=== PATIENT | male | born 1960 | race Asian ===

== ENCOUNTER 2021-11-26 12:06 | Emergency (ER) | payer MEDICARE, MEDICAID ==
[~2021-11-26] VITALS: Ht 182.9 cm; Wt 63.5 kg
[~2021-11-26 12:06] MED LIST: ACYC-163 PO; AMLO-496 PO; ATOR20TA PO; CLON0.2T PO; METO25TA93 PO; MYCO180T PO; NYSTPOW PO; OMEG100062 PO; PRED5PAK8 PO; TACR1CAP4 PO; TACR5CAP3 PO
[2021-11-26] MEDS ORDERED: SODIUM CHLORIDE 0.9% 1,000 ML IV ONE (12:30)
[2021-11-26 13:07] VITALS: BP 105/69
[2021-11-26 13:26] LABS: Basophils # (auto) 0 10 ^3/uL (0-0.2); Basophils % (auto) 0.4 % (0.0-2.0); Eosinophils # (auto) 0.1 10 ^3/uL (0-0.8); Eosinophils % (auto) 1.9 % (0.0-7.0); Hematocrit 35.2 % (41.0-53.0); Hemoglobin 11.9 g/dL (13.5-17.5); Lymphocytes # (auto) 0.9 10 ^3/uL (0.4-5.4); Lymphocytes % (auto) 18.4 % (10.0-50.0); Mean Corpuscular Hemoglobin 33.2 pg (28.0-32.0); Mean Corpuscular Hgb Conc. 33.8 g/dL (32.0-36.0); Mean Corpuscular Volume 98.5 fL (80.0-100.0); Monocytes # (auto) 0.4 10 ^3/uL (0-1.3); Monocytes % (auto) 7.7 % (0.0-12.0); Neutrophils # (auto) 3.3 10 ^3/uL (1.6-8.6); Neutrophils % (auto) 71.6 % (37.0-80.0); Nucleated Red Blood Cells % 0.1 %; Red Blood Cells 3.58 10^6/uL (4.5-5.90); Red Cell Distribution Width 13.8 % (11.8-14.3); White Blood Cell 4.6 10^3/uL (4.4-10.8)
[2021-11-26 13:43] LABS: INR 1.09 (0.9-1.15); Partial Thromboplastin Time 25.2 sec (23.6-33.0)
[2021-11-26 13:50] LABS: Albumin 3.4 g/dL (3.4-5.0); Calcium 8.3 mg/dL (8.5-10.1); Potassium 3.7 mmol/L (3.5-5.1)
[2021-11-26 13:52] LABS: BUN/Creatinine Ratio 22.8; Bilirubin, Total 0.4 mg/dL (0.2-1.0); Total Protein 6.7 g/dL (6.4-8.2)
== END 2021-11-26 14:52 | disposition left against medical advice (07) ==
LOC: EDBD 12:06 → ER 12:06
DX: R10.84 Generalized abdominal pain (principal); R53.1 Weakness; I12.9 Hypertensive chronic kidney disease with stage 1 through stage 4 chronic kidney disease, or unspecified chronic kidney disease; N18.9 Chronic kidney disease, unspecified; E78.5 Hyperlipidemia, unspecified; Z86.2 Personal history of diseases of the blood and blood-forming organs and certain disorders involving the immune mechanism; Z79.899 Other long term (current) drug therapy
CPT/HCPCS: 36415; 74176; 80053; 83605; 83690; 84484; 85025; 85610; 85730; 87040

== ENCOUNTER 2022-05-26 06:08 | Day surgery (SDC) | payer MEDICARE, MEDICAID ==
[2022-05-24 14:59] LABS: Urine Bacteria NONE SEEN /hpf (None Seen); Urine Blood Negative /uL (Negative); Urine Specific Gravity 1.024 (1.001-1.035); Urine WBC 10 /hpf (0 - 3)
[2022-05-24 15:00] LABS: Basophils # (auto) 0 10 ^3/uL (0-0.2); Basophils % (auto) 0.9 % (0.0-2.0); Eosinophils # (auto) 0.4 10 ^3/uL (0-0.8); Eosinophils % (auto) 6.7 % (0.0-7.0); Hematocrit 32.8 % (41.0-53.0); Hemoglobin 10.8 g/dL (13.5-17.5); Lymphocytes # (auto) 1.1 10 ^3/uL (0.4-5.4); Lymphocytes % (auto) 20.5 % (10.0-50.0); Mean Corpuscular Hemoglobin 32.1 pg (28.0-32.0); Mean Corpuscular Hgb Conc. 33.1 g/dL (32.0-36.0); Mean Corpuscular Volume 97.2 fL (80.0-100.0); Monocytes # (auto) 0.5 10 ^3/uL (0-1.3); Monocytes % (auto) 9.2 % (0.0-12.0); Neutrophils # (auto) 3.3 10 ^3/uL (1.6-8.6); Neutrophils % (auto) 62.7 % (37.0-80.0); Nucleated Red Blood Cells % 0.1 %; Red Blood Cells 3.37 10^6/uL (4.5-5.90); White Blood Cell 5.3 10^3/uL (4.4-10.8)
[2022-05-24 15:14] LABS: Calcium 8.6 mg/dL (8.5-10.1); Potassium 4.8 mmol/L (3.5-5.1)
[2022-05-24 15:19] LABS: BUN/Creatinine Ratio 17.4; Bilirubin, Total 0.7 mg/dL (0.2-1.0); Total Protein 7.6 g/dL (6.4-8.2)
[2022-05-24 15:56] LABS: INR 1.13 (0.9-1.15); Partial Thromboplastin Time 27.1 sec (24.6-33.4)
[~2022-05-26] VITALS: Ht 170.2 cm; Wt 63.5 kg
[~2022-05-26 06:08] MED LIST changes: -ACYC-163 PO; +AMLO-489 PO; -AMLO-496 PO; +ASPI81CH59 PO; -ATOR20TA PO; +CARV25TA55 PO; +CHOL500021 PO; -CLON0.2T PO; +FAMO20TA10 PO; +FER325T PO; +MAGN400T40 PO; +MEGE40TA4 PO; -METO25TA93 PO; -MYCO180T PO; +MYCO360T PO; -NYSTPOW PO; -OMEG100062 PO; +OMEP20TA PO; -PRED5PAK8 PO; +PYRI1TAB10 PO; +ROSU20TA14 PO; +SODI650T PO; -TACR5CAP3 PO
[2022-05-26] MEDS ORDERED: ceFAZolin 1GM/50ML 0 ML IV ONE (06:39)
[2022-05-26] MEDS ORDERED: LIDOCAINE W/ EPINEPHRINE 2% INJ 20ML VIAL ONE (06:54)
[2022-05-26] MEDS ORDERED: ceFAZolin 1GM VL ONE (06:58)
[2022-05-26] MEDS ORDERED: CIPROFLOXACIN 400MG/200ML 200 ML IV ONE (07:19)
[2022-05-26] MEDS ORDERED: MIDAZOLAM HCL 2MG/2ML 2ml VIAL (1mg/ml) ONE (07:29)
[2022-05-26] MEDS ORDERED: fentaNYL CITRATE 100 MCG/2 ML VL ONE ×2 (07:29→07:56)
[2022-05-26] MEDS ORDERED: ROCURONIUM 10MG/ML 10ML VIAL IV ONE (07:29)
[2022-05-26] MEDS ORDERED: LIDOCAINE 2% (LOCAL ANESTH.) PF 5ml SDV ONE (07:30)
[2022-05-26] MEDS ORDERED: ONDANSETRON HCL 4 MG/2 ML VIAL ONE (07:30)
[2022-05-26] MEDS ORDERED: PROPOFOL 10 MG/ML 20 ML IV ONE (07:30)
[2022-05-26] MEDS ORDERED: ONDANSETRON HCL 4 MG/2 ML VIAL IV PRN (08:45)
[2022-05-26] MEDS: HYDROmorphone HCL 2 MG/ML VL/or syr IV PRN ×4 (09:19→10:00)
[2022-05-26] MEDS: hydrALAZINE HCL 20 MG/ML VL ONE ×3 (09:50→10:30)
[2022-05-26 10:50] VITALS: BP 163/88
== END 2022-05-26 11:18 | disposition home or self-care (01) ==
LOC: SUR 06:08
PROVIDERS: ATTEND Urology
DX: N52.9 Male erectile dysfunction, unspecified (principal); N52.01 Erectile dysfunction due to arterial insufficiency; N18.6 End stage renal disease; I12.0 Hypertensive chronic kidney disease with stage 5 chronic kidney disease or end stage renal disease; E78.5 Hyperlipidemia, unspecified; Z79.899 Other long term (current) drug therapy; Z98.890 Other specified postprocedural states
CPT/HCPCS: 36415; 54401; 80053; 81001; 85025; 85610; 85730; 87086; C1813; J0360; J0690; J0744; J1170; J2001; J2250; J2405; J2704; J3010; U0003

== ENCOUNTER → 2022-09-08 | Day surgery (SDC) | payer MEDICARE, MEDICAID ==
[2022-09-06 09:20] LABS: Basophils # (auto) 0 10 ^3/uL (0-0.2); Eosinophils # (auto) 0.1 10 ^3/uL (0-0.8); Eosinophils % (auto) 2.4 % (0.0-7.0); Hematocrit 31.1 % (41.0-53.0); Hemoglobin 10.4 g/dL (13.5-17.5); Lymphocytes # (auto) 0.7 10 ^3/uL (0.4-5.4); Lymphocytes % (auto) 18.7 % (10.0-50.0); Mean Corpuscular Hgb Conc. 33.5 g/dL (32.0-36.0); Mean Corpuscular Volume 95.4 fL (80.0-100.0); Monocytes # (auto) 0.4 10 ^3/uL (0-1.3); Monocytes % (auto) 10.5 % (0.0-12.0); Neutrophils # (auto) 2.4 10 ^3/uL (1.6-8.6); Neutrophils % (auto) 67.4 % (37.0-80.0); Nucleated Red Blood Cells % 0.1 %; Red Blood Cells 3.26 10^6/uL (4.5-5.90); Red Cell Distribution Width 13.2 % (11.8-14.3); White Blood Cell 3.6 10^3/uL (4.4-10.8)
[2022-09-06 09:23] LABS: Urine Bacteria NONE SEEN /hpf (None Seen); Urine Blood Negative /uL (Negative); Urine WBC 2 /hpf (0 - 3)
[2022-09-06 09:57] LABS: INR 1.12 (0.9-1.15); Partial Thromboplastin Time 27.9 sec (24.6-33.4)
[2022-09-06 09:59] LABS: Potassium 4.1 mmol/L (3.5-5.1)
[2022-09-06 10:18] LABS: BUN/Creatinine Ratio 17.1; Bilirubin, Total 0.8 mg/dL (0.2-1.0); Calcium 7.9 mg/dL (8.5-10.1); Total Protein 7.2 g/dL (6.4-8.2)
[~2022-09-08] VITALS: Ht 170.2 cm; Wt 68.0 kg
[~2022-09-08] MED LIST changes: +BACITRACIN TOP OINT 1 UD PKG TOP ONE; +DexAMETHasone SOD PHOS 10MG/1ML VIAL INJ ONE; +FLUMAZENIL 0.1 MG/ML INJ 10ML MDV IV PRN; +GLYCOPYRROLATE 0.2 MG/ML 1ML VIAL ONE; +HYDROmorphone HCL 2 MG/ML VL/or syr ONE; +KETOROLAC TROMETH 30 MG/ML 1ML VIAL ONE; +LABETALOL HCL 5 MG/ML 4ML SYRINGE IV PRN; +LIDOCAINE 1%HCL (LOCAL ANESTH) 10 ML MDV ONE; +LIDOCAINE 2% (LOCAL ANESTH.) PF 5ml SDV ONE; +NALOXONE HCL 0.4 MG/ML VIAL IV PRN; +ONDANSETRON HCL 4 MG/2 ML VIAL IV PRN; +ONDANSETRON HCL 4 MG/2 ML VIAL ONE; +PROPOFOL 10 MG/ML 20 ML IV ONE; +SODIUM CHLORIDE LOCK 10 ML ONE; +ceFAZolin 1GM VL ONE; +ceFAZolin 1GM/50ML 100 ML IV ONE; +ePHEDrine SULFATE 50 MG/ML AMP IV PRN; +ePHEDrine SULFATE 50 MG/ML AMP ONE; +fentaNYL CITRATE 100 MCG/2 ML VL IV PRN; +fentaNYL CITRATE 100 MCG/2 ML VL ONE
[2022-09-08] MEDS: HYDROmorphone HCL 2 MG/ML VL/or syr IV PRN ×3 (11:02→11:55)
[2022-09-08] MEDS: hydrALAZINE HCL 20 MG/ML VL IV PRN ×2 (11:37→12:19)
[2022-09-08 13:15] VITALS: BP 165/89
== END | disposition home or self-care (01) ==
LOC: SUR 07:14
PROVIDERS: ATTEND Urology
DX: T83.420A Displacement of implanted penile prosthesis, initial encounter (principal); M79.89 Other specified soft tissue disorders; N39.0 Urinary tract infection, site not specified; Y83.8 Other surgical procedures as the cause of abnormal reaction of the patient, or of later complication, without mention of misadventure at the time of the procedure; I10 Essential (primary) hypertension; Z79.899 Other long term (current) drug therapy; Z20.822 Contact with and (suspected) exposure to COVID-19
CPT/HCPCS: 36415; 54408; 80053; 81001; 85025; 85610; 85730; 87086; J0360; J0690; J1100; J1170; J1885; J2001; J2405; J2704; U0003